=== PATIENT | female | born 1995 | race American Indian/Alaskan Native ===

== ENCOUNTER 2020-09-10 15:21 | Emergency (ER) | payer MEDICAID ==
[2020-09-10] MEDS ORDERED: ACETAMINOPHEN 325 MG TAB PO ONE (15:29)
--- NOTE | 2020-09-10 15:47 | Emergency Department Report ---
Blank Doc - Documentation Documentation: 24-year-old female that was sent by urgent care for positive Covid test. Brianna ent stated has worsening shortness of breath with fever, chills and cough. Tachycardia and fever in triage. Patient received Tylenol. 1- This initial assessment/diagnostic orders/clinical plan/ treatment(s) is/are subject to change based on pt's health status, clinical progression and re- assessment by fellow clinical providers in the ED. Further treatment and workup at subsequent clinical provers discretion. Patient/guardians urged not to elope from ED as their condition may be serious if not clinically assessed and managed. 2-labs 3-EKG 4-chest x-ray
[2020-09-10 16:08] LABS: Basophils # (Auto) 0.1 K/mm3 (0.0-0.1); Basophils % (Auto) 0.6 % (0.0-1.8); Eosinophils # (Auto) 0.3 K/mm3 (0.0-0.4); Eosinophils % (Auto) 2.9 % (0.0-4.3); Hematocrit 36.3 % (30.3-42.9); Hemoglobin 12.4 gm/dl (10.1-14.3); Lymphocytes # (Auto) 1.1 K/mm3 (1.2-5.4); Lymphocytes % (Auto) 11.4 % (13.4-35.0); Mean Corpuscular HGB Conc 34 % (30-34); Mean Corpuscular Volume 84 fl (79-97); Monocytes # (Auto) 0.6 K/mm3 (0.0-0.8); Monocytes % (Auto) 5.9 % (0.0-7.3); Platelet Count 304 K/mm3 (140-440); Red Blood Count 4.34 M/mm3 (3.65-5.03); Red Cell Distribution Width 12.8 % (13.2-15.2)
[2020-09-10 16:27] LABS: Blood Urea Nitrogen 7 mg/dL (7-17); Calcium 8.8 mg/dL (8.4-10.2); Hemolysis Index 4
[2020-09-10 16:28] LABS: BUN/Creatinine Ratio 12
--- NOTE | 2020-09-10 17:04 | XRay Report ---
CHEST 1 VIEW 09/10/2020 3:57 PM INDICATION / CLINICAL INFORMATION: sob/cough. Covid positive COMPARISON: None available. FINDINGS: SUPPORT DEVICES: None. HEART / MEDIASTINUM: No significant abnormality. LUNGS / PLEURA: No significant pulmonary or pleural abnormality. No pneumothorax. ADDITIONAL FINDINGS: No significant additional findings. IMPRESSION: 1. No acute findings. Signer Name: Aj Torres MD Signed: 09/10/2020 5:00 PM Workstation Name: [id number]
--- NOTE | 2020-09-10 17:22 | Emergency Department Report ---
- General Chief Complaint: Dyspnea/Respdistress Stated Complaint: RADHA Time Seen by Provider: 09/10/20 15:44 Source: patient Mode of arrival: Ambulatory Limitations: No Limitations - History of Present Illness Initial Comments: Patient is a 24-year-old female presents emergency room complaints of URI symptoms that began 3 days ago. She states initially it began with sneezing. She states then she developed coughing, chest tightness, shortness of breath. She states her symptoms are worse with coughing. She also has fever, chills, generalized body aches. She denies any vomiting, diarrhea, leg swelling, pleuritic chest pain. She states that she went to urgent care today and was diagnosed with COVID-19 via rapid testing and advised to be seen in the emergency department. No past medical history. No allergies medications. - Related Data Previous Rx's Medication Instructions Recorded Last Taken Type Ferrous Sulfate [Feosol 325 MG tab] 325 mg PO BID #60 tablet 08/01/14 Unknown Rx HYDROcodone/APAP 5-325 [[place] 1 each PO Q6H PRN #30 tablet 08/01/14 Unknown Rx 5-325 mg TAB] Ibuprofen [Motrin 600 MG tab] 600 mg PO Q6HR PRN #30 tablet 08/01/14 Unknown Rx Vit-Fe Fumar-FA [ 1 each PO QDAY #30 tablet 08/01/14 Unknown Rx Vitamin] Acetaminophen [Tylenol] 650 mg PO Q8HR PRN #20 capsule 09/10/20 Unknown Rx Albuterol Sulfate [Proventil Hfa] 1 - 2 inhalation IH Q4HR PRN #1 09/10/20 Unkno wn Rx hfa.aer.ad Azithromycin [Zithromax TAB] 250 mg PO QDAY 5 Days #6 tablet 09/10/20 Unknown Rx Prednisone [predniSONE 10 mg 10 mg PO .TAPER #1 tab.ds.pk 09/10/20 Unknown Rx (6-Day Pack, 21 Tabs)] guaiFENesin ER [Mucinex ER] 600 mg PO Q12H #14 tablet.er 09/10/20 Unknown Rx Allergies Allergy/AdvReac Type Severity Reaction Status Date / Time No Known Allergies Allergy Verified 09/10/20 15:22 ED Review of Systems ROS: Stated complaint: RADHA Other details as noted in HPI Comment: All other systems reviewed and negative ED Past Medical Hx - Past Medical History Hx Hypertension: No Hx Congestive Heart Failure: No Hx Diabetes: No Hx Deep Vein Thrombosis: No Hx Renal Disease: No Hx Sickle Cell Disease: No Hx Seizures: No Hx Asthma: No Hx COPD: No Hx HIV: No - Surgical History Past Surgical History?: No - Social History Smoking Status: Never Smoker Substance Use Type: Alcohol, Marijuana - Medications Home Medications: Home Medications Medication Instructions Recorded Confirmed Last Taken Type Ferrous Sulfate [Feosol 325 MG tab] 325 mg PO BID #60 tablet 08/01/14 Unknown Rx HYDROcodone/APAP 5-325 [[place] 1 each PO Q6H PRN #30 tablet 08/01/14 Unknown Rx 5-325 mg TAB] Ibuprofen [Motrin 600 MG tab] 600 mg PO Q6HR PRN #30 tablet 08/01/14 Unknown Rx Vit-Fe Fumar-FA [ 1 each PO QDAY #30 tablet 08/01/14 Unknown Rx Vitamin] Acetaminophen [Tylenol] 650 mg PO Q8HR PRN #20 capsule 09/10/20 Unknown Rx Albuterol Sulfate [Proventil Hfa] 1 - 2 inhalation IH Q4HR PRN #1 09/10/20 Unknown Rx hfa.aer.ad Azithromycin [Zithromax TAB] 250 mg PO QDAY 5 Days #6 tablet 09/10/20 Unknown Rx Prednisone [predniSONE 10 mg 10 mg PO .TAPER #1 tab.ds.pk 09/10/20 Unknown Rx (6-Day Pack, 21 Tabs)] guaiFENesin ER [Mucinex ER] 600 mg PO Q12H #14 tablet.er 09/10/20 Unknown Rx ED Physical Exam - General Limitations: No Limitations General appearance: alert, in no apparent distress - Head Head exam: Present: atraumatic, normocephalic - Eye Eye exam: Present: normal appearance - ENT ENT exam: Present: mucous membranes moist - Respiratory Respiratory exam: Present: normal lung sounds bilaterally. Absent: respiratory distress, wheezes, rales, rhonchi, stridor, chest wall tenderness, accessory muscle use, decreased breath sounds, prolonged expiratory - Cardiovascular Cardiovascular Exam: Present: regular rate, normal rhythm, normal heart sounds. Absent: systolic murmur, diastolic murmur, rubs, gallop - Neurological Exam Neurological exam: Present: alert, oriented X3 - Psychiatric Psychiatric exam: Present: normal affect, normal mood - Skin Skin exam: Present: warm, dry, intact ED Course Vital Signs 09/10/20 09/10/20 09/10/20 15:27 16:58 17:23 Temperature 100.2 F H 98.8 F Pulse Rate 122 H 105 H 106 H Respiratory 20 18 18 Rate Blood Pressure 152/89 Blood Pressure 126/70 129/92 [Left] O2 Sat by Pulse 96 100 96 Oximetry ED Medical Decision Making - Lab Data Result diagrams: 09/10/20 15:50 09/10/20 15:50 Lab Results 09/10/20 09/10/20 09/10/20 Range/Units 15:50 15:50 15:50 WBC 9.4 (4.5-11.0) K/mm3 RBC 4.34 (3.65-5.03) M/mm3 Hgb 12.4 (10.1-14.3) gm/dl Hct 36.3 (30.3-42.9) % MCV 84 (79-97) fl MCH 29 (28-32) pg MCHC 34 (30-34) % RDW 12.8 L (13.2-15.2) % Plt Count 304 (140-440) K/mm3 Lymph % (Auto) 11.4 L (13.4-35.0) % [place] % (Auto) 5.9 (0.0-7.3) % Eos % (Auto) 2.9 (0.0-4.3) % Baso % (Auto) 0.6 (0.0-1.8) % Lymph # (Auto) 1.1 L (1.2-5.4) K/mm3 [place] # (Auto) 0.6 (0.0-0.8) K/mm3 Eos # (Auto) 0.3 (0.0-0.4) K/mm3 Baso # (Auto) 0.1 (0.0-0.1) K/mm3 Seg Neutrophils % 79.2 H (40.0-70.0) % Seg Neutrophils # 7.4 (1.8-7.7) K/mm3 Sodium 136 L (137-145) mmol/L Potassium 3.5 L (3.6-5.0) mmol/L Chloride 103.0 (98-107) mmol/L Carbon Dioxide 23 (22-30) mmol/L Anion Gap 14 mmol/L BUN 7 (7-17) mg/dL Creatinine 0.6 (0.6-1.2) mg/dL Estimated GFR > 60 ml/min BUN/Creatinine Ratio 12 % Glucose 103 H (65-100) mg/dL Lactic Acid 1.10 (0.7-2.0) mmol/L Calcium 8.8 (8.4-10.2) mg/dL HCG, Qual (Negative) 09/10/20 Range/Units 15:50 WBC (4.5-11.0) K/mm3 RBC (3.65-5.03) M/mm3 Hgb (10.1-14.3) gm/dl Hct (30.3-42.9) % MCV (79-97) fl MCH (28-32) pg MCHC (30-34) % RDW (13.2-15.2) % Plt Count (140-440) K/mm3 Lymph % (Auto) (13.4-35.0) % [place] % (Auto) (0.0-7.3) % Eos % (Auto) (0.0-4.3) % Baso % (Auto) (0.0-1.8) % Lymph # (Auto) (1.2-5.4) K/mm3 [place] # (Auto) (0.0-0.8) K/mm3 Eos # (Auto) (0.0-0.4) K/mm3 Baso # (Auto) (0.0-0.1) K/mm3 Seg Neutrophils % (40.0-70.0) % Seg Neutrophils # (1.8-7.7) K/mm3 Sodium (137-145) mmol/L Potassium (3.6-5.0) mmol/L Chloride (98-107) mmol/L Carbon Dioxide (22-30) mmol/L Anion Gap mmol/L BUN (7-17) mg/dL Creatinine (0.6-1.2) mg/dL Estimated GFR ml/min BUN/Creatinine Ratio % Glucose (65-100) mg/dL Lactic Acid (0.7-2.0) mmol/L Calcium (8.4-10.2) mg/dL HCG, Qual Negative (Negative) Vital Signs 09/10/20 09/10/20 09/10/20 15:27 16:58 17:23 Temperature 100.2 F H 98.8 F Pulse Rate 122 H 105 H 106 H Respiratory 20 18 18 Rate Blood Pressure 152/89 Blood Pressure 126/70 129/92 [Left] O2 Sat by Pulse 96 100 96 Oximetry - Radiology Data Radiology results: report reviewed Ordering Physician: OLIVA BACA NP Date of Service: 09/10/20 Procedure(s): XR chest 1V ap Accession Number(s): [id number] cc: OLIVA BACA NP Fluoro Time In Minutes: CHEST 1 VIEW 09/10/2020 3:57 PM INDICATION / CLINICAL INFORMATION: sob/cough. Covid positive COMPARISON: None available. FINDINGS: SUPPORT DEVICES: None. HEART / MEDIASTINUM: No significant abnormality. LUNGS / PLEURA: No significant pulmonary or pleural abnormality. No pneumothorax. ADDITIONAL FINDINGS: No significant additional findings. IMPRESSION: 1. No acute findings. Signer Name: Aj Torres MD Signed: 09/10/2020 5:00 PM Workstation Name: [id number] Transcribed By: SS Dictated By: Aj Torres MD Electronically Authenticated By: Aj Torres MD Signed Date/Time: 09/10/201699 DD/ 99 TD/TT: - Medical Decision Making Patient is a 24-year-old female presents emergency room complaints of URI symptoms that began 3 days ago. She states initially it began with sneezing. She states then she developed coughing, chest tightness, shortness of breath. She states her symptoms are worse with coughing. She also has fever, chills, generalized body aches. She denies any vomiting, diarrhea, leg swelling, pleuritic chest pain. She states that she went to urgent care today and was di agnosed with COVID-19 via rapid testing and advised to be seen in the emergency department. No past medical history. No allergies medications. Vitals with elevated heart rate and temperature which improved upon repeat. Breath sounds are clear bilaterally, no wheezing, no rales, no rhonchi. Labs are stable. Chest x-ray with no acute process. Patient was ambulated in the emergency department and maintained oxygen saturation of 94% or greater on room air. Patient does not meet hospital criteria for admission. Patient given prescription for azithromycin, prednisone, albuterol inhaler, Mucinex, Tylenol. Advised patient Please take medication as prescribed. Please increase your fluid intake over the next several days. Follow-up with a primary care doctor for reexamination. Return to emergency room immediately for any new or worsening symptoms including but not limited to difficulty breathing, shortness of breath, severe chest pain, unable to tolerate by mouth intake, etc. Please self quarantine for 10 days from the onset of your symptoms. Please do not go out in public. If you are around others at home please wear a mask. If you need to cough or sneeze please do so in a napkin and immediately throw it away and immediately wash your hands. Wash your hands frequently. Wipe everything down. Critical care attestation.: If time is entered above; I have spent that time in minutes in the direct care of this critically ill patient, excluding procedure time. ED Disposition Clinical Impression: COVID-19 URI (upper respiratory infection) Qualifiers: URI type: unspecified URI Qualified Code(s): J06.9 - Acute upper respiratory infection, unspecified Disposition: DC-01 TO HOME OR SELFCARE Is pt being admited?: No Does the pt Need Aspirin: No Condition: Stable Instructions: COVID-19 Frequently Asked Questions, COVID-19, COVID-19: How to Protect Yourself and Others - CDC Additional Instructions: Please take medication as prescribed. Please increase your fluid intake over the next several days. Follow-up with a primary care doctor for reexamination. Return to emergency room immediately for any new or worsening symptoms including but not limited to difficulty breathing, shortness of breath, severe chest pain, unable to tolerate by mouth intake, etc. Please self quarantine for 10 days from the onset of your symptoms. Please do not go out in public. If you are around others at home please wear a mask. If you need to cough or sneeze please do so in a napkin and immediately throw it away and immediately wash your hands. Wash your hands frequently. Wipe everything down. Prescriptions: guaiFENesin ER [Mucinex ER] 600 mg PO Q12H #14 tablet.er Prednisone [predniSONE 10 mg (6-Day Pack, 21 Tabs)] 10 mg PO .TAPER #1 tab.ds.pk Albuterol Sulfate [Proventil Hfa] 1 - 2 inhalation IH Q4HR PRN #1 hfa.aer.ad PRN Reason: shortness of breath/wheezing Acetaminophen [Tylenol] 650 mg PO Q8HR PRN #20 capsule PRN Reason: pain Azithromycin [Zithromax TAB] 250 mg PO QDAY 5 Days #6 tablet Referrals: SUZY GRULLON MD [Staff Physician] - 2-3 Days [facility] [Provider Group] - 2-3 Days Forms: Work/School Release Form(ED) Time of Disposition: 17:18 Print Language: YAKUT
[2020-09-10 17:24] VITALS: BP 129/92
== END 2020-09-10 17:40 | disposition home or self-care (01) ==
LOC: ED 15:21
DX: U07.1 COVID-19 (principal); J06.9 Acute upper respiratory infection, unspecified; F12.10 Cannabis abuse, uncomplicated; Z79.1 Long term (current) use of non-steroidal anti-inflammatories (NSAID); Z79.2 Long term (current) use of antibiotics; Z79.899 Other long term (current) drug therapy
CPT/HCPCS: 36415; 71045; 80048; 82140; 84703; 85025

== ENCOUNTER 2021-03-09 08:24 | Observation (INO) | payer MEDICAID ==
[2021-03-09] MEDS ORDERED: MIDAZOLAM 2 MG/2 ML INJ IV NR (08:26)
--- NOTE | 2021-03-09 08:28 | Event Note ---
Date: 03/09/21 The patient was evaluated in the emergency department for symptoms described in the history of present illness. He/she was evaluated in the context of the global COVID-19 pandemic, which necessitated consideration that the patient might be at risk for infection with the virus that causes COVID-19. Institutional protocols and algorithms that pertain to the evaluation of patients at risk for COVID-19 are in a state of rapid change based on information released by regulatory bodies including the CDC and federal and state organizations. These policies and algorithms were followed during the patient's care in the emergency department. Please note that these policies, procedures and recommendations changed on a rapid basis. EMS documentation not available at time of chart dictation Verbal report received from emergency medical services. Medical screening examination: 25-year-old female, brought to the hospital by emergency medical services with a complaint of altered mental status. Patient is awake, and alert to name, but does not know the year, month, or president. She has intermittent hiccups. She is moving 4 extremities. She consumes recreational marijuana. She is not homicidal or suicidal. She has not fallen or hit her head. EMS reports that she did collapse into soft questions upon their arrival. They report normal fingerstick and normal vital signs. The patient is conversing with me, and appears to be minimally confused. She is moving 4 extremities. She has no meningeal signs. She admits to recreational marijuana use. I suspect a toxic encephalopathy. Obtain appropriate laboratory studies, EKG, noncontrast CT scan of the brain, trial dose 1 mg of midazolam.
[2021-03-09] MEDS ORDERED: LACTATED RINGERS 1,000 ML IV ONE (08:52)
--- NOTE | 2021-03-09 08:54 | Cat Scan Report ---
CT HEAD WITHOUT CONTRAST INDICATION / CLINICAL INFORMATION: CODE STROKE CALL ER MAIN AT 8199 Altered Mental Status. TECHNIQUE: Axial imaging performed from the skull apex through the skull base without the use of cont rast. Sagittal and coronal reformatted images. All CT scans at this location are performed using CT dose reduction for ALARA by means of automated exposure control. COMPARISON: None available. FINDINGS: Comment: There is moderate patient motion artifact which limits this exam. CEREBRAL PARENCHYMA: No significant abnormality. No acute territorial infarct. HEMORRHAGE: None. EXTRA-AXIAL SPACES: Normal in size and morphology for the patient's age. VENTRICULAR SYSTEM: Normal in size and morphology for the patient's age. MIDLINE SHIFT OR HERNIATION: None. CEREBELLUM / BRAINSTEM: No significant abnormality. CALVARIUM: No significant abnormality. ORBITS: Normal as visualized. PARANASAL SINUSES / MASTOID AIR CELLS: Moderate to severe mucosal thickening is noted throughout the ethmoid and maxillary sinuses. The remaining sinuses and mastoid air cells are clear. SOFT TISSUES of HEAD: No significant abnormality. ADDITIONAL FINDINGS: None. IMPRESSION: No acute intracranial abnormality. CODE STROKE: Time of Communication (SATELLITE TV TECHNICIAN INSTALLER/CDT): 0750 hours Licensed Practitioner Receiving Report: donna Walton nurse Signer Name: Pravin Myers Jr, MD Signed: 03/09/2021 8:50 AM Workstation Name: [id number]
--- NOTE | 2021-03-09 08:56 | Emergency Department Report ---
Blank Doc - Documentation Documentation: [facility] Consult Note # Demographics Consult Type: General Neurology Patient Location: Emergency Room First Name: Destinee Last Name: Robert Date of : 1995 Age: 25 Gender: Female Facility: [facility] Time of Initial Page (Eastern Time): 03/09/2021, 08:47 Time of Return Call (Eastern Time): 03/09/2021, 08:47 # HPI History: 25yo F presents with some confusion, some jerking movements and some weakness of the right leg. # Exam Mental Status: awake follows commands child-like speaking and behaviors Language: normal speech Cranial Nerves: normal Motor: symmetric lifting of all extremities Cerebellar: normal cerebellar exam # Assessment Impression: whole body jerking, child like behavior. highly unliely to be seizure as she is talking through the jerking movements # Plan Thrombolytic/Intervention: NOT IV Thrombolysis or IA Intervention candidate Thrombolytic/Intraarterial Exclusion: IV thrombolytic and IA intervention considered but not recommended as this patient's symptoms are not clinically consistent with an assumed diagnosis of stroke Imaging: (urgency: STAT): CT Angiogram Head and CT Angiogram Neck AND call back with results if abnormal Imaging: (urgency: routine): MRI Brain with AND without contrast Diagnostic Test: EEG Therapy/Evaluation: PT/OT evaluation Other: I have discussed my recommendations with the referring provider # Logistics Telemedicine: Interactive 2 way audio and visual telecommunication technology was utilized during this visit
[2021-03-09 08:59] LABS: Basophils # (Auto) 0.1 K/mm3 (0.0-0.1); Basophils % (Auto) 0.9 % (0.0-1.8); Eosinophils # (Auto) 0.1 K/mm3 (0.0-0.4); Hematocrit 39.3 % (30.3-42.9); Hemoglobin 13.2 gm/dl (10.1-14.3); Lymphocytes # (Auto) 2.7 K/mm3 (1.2-5.4); Lymphocytes % (Auto) 43.7 % (13.4-35.0); Mean Corpuscular HGB Conc 34 % (30-34); Mean Corpuscular Volume 84 fl (79-97); Monocytes # (Auto) 0.4 K/mm3 (0.0-0.8); Platelet Count 394 K/mm3 (140-440); Red Cell Distribution Width 12.6 % (13.2-15.2)
[2021-03-09 09:15] LABS: INR 0.89 (0.87-1.13)
[2021-03-09 09:38] LABS: Alanine Aminotransferase 20 units/L (7-56); Albumin 4.4 g/dL (3.9-5); Blood Urea Nitrogen 6 mg/dL (7-17); Hemolysis Index 2
--- NOTE | 2021-03-09 09:39 | Emergency Department Report ---
ED General Adult HPI - General Chief complaint: Altered Mental Status Stated complaint: ALTERED MENTAL STATUS PUI?: No Time Seen by Provider: 03/09/21 08:52 Source: patient, EMS (Verbal report received from emergency medical services. EMS documentation not available at time of chart dictation ), RN notes reviewed Mode of arrival: Stretcher Limitations: Altered Mental Status - History of Present Illness Initial comments: The patient was evaluated in the emergency department for symptoms described in the history of present illness. He/she was evaluated in the context of the global COVID-19 pandemic, which necessitated consideration that the patient might be at risk for infection with the virus that causes COVID-19. Inst itutional protocols and algorithms that pertain to the evaluation of patients at risk for COVID-19 are in a state of rapid change based on information released by regulatory bodies including the CDC and federal and state organizations. These policies and algorithms were followed during the patient's care in the emergency department. Please note that these policies, procedures and recommendations changed on a rapid basis. The patient is a 25-year-old female. She is not known to myself previously. She is brought to the hospital by emergency medical services with a complaint of altered mental status. EMS believes that patient's last known well time is approximately 2 hours prior to their initial arrival to this emergency room. However, they are not completely certain as to the patient's last known well time. The patient reports that she got back from [place] last night. She endorses recreational marijuana consumption. The patient complained of hand pain. EMS states the patient has been having involuntary jerking movements in her shoulders. EMS also stated normal vital signs and normal Accu-Chek in the field. The patient herself in the emergency room is awake to name and follows commands. She thinks that she is at the hospital. She does not know the year, or the manufacturing teacher. The patient is confused, and not able to describe the qualitative nature of her symptoms, exacerbating factors, relieving factors or aggravating factors. The patient is not accompanied by friends or family at this time for collateral information. -: unknown - Related Data Previous Rx's Medication Instructions Recorded Last Taken Type Ferrous Sulfate [Feosol 325 MG tab] 325 mg PO BID #60 tablet 08/01/14 Unknown Rx HYDROcodone/APAP 5-325 [Ke[place] 1 each PO Q6H PRN #30 tablet 08/01/14 Unknown Rx 5-325 mg TAB] Ibuprofen [Motrin 600 MG tab] 600 mg PO Q6HR PRN #30 tablet 08/01/14 Unknown Rx Vit-Fe Fumar-FA [ 1 each PO QDAY #30 tablet 08/01/14 Unknown Rx Vitamin] Acetaminophen [Tylenol] 650 mg PO Q8HR PRN #20 capsule 09/10/20 Unknown Rx Albuterol Sulfate [Proventil Hfa] 1 - 2 inhalation IH Q4HR PRN #1 09/10/20 Unknown Rx hfa.aer.ad Azithromycin [Zithromax TAB] 250 mg PO QDAY 5 Days #6 tablet 09/10/20 Unknown Rx Prednisone [predniSONE 10 mg 10 mg PO .TAPER #1 tab.ds.pk 09/10/20 Unknown Rx (6-Day Pack, 21 Tabs)] guaiFENesin ER [Mucinex ER] 600 mg PO Q12H #14 tablet.er 09/10/20 Unknown Rx Allergies Allergy/AdvReac Type Severity Reaction Status Date / Time No Known Allergies Allergy Verified 09/10/20 15:22 ED Review of Systems ROS: Stated complaint: ALTERED MENTAL STATUS Other details as noted in HPI Comment: Unobtainable due to pts medical conditions Cardiovascular: denies: chest pain Gastrointestinal: denies: abdominal pain Neurological: confusion Psychiatric: denies: homicidal thoughts, suicidal thoughts ED Past Medical Hx - Past Medical History Hx Hypertension: No Hx Congestive Heart Failure: No Hx Diabetes: No Hx Deep Vein Thrombosis: No Hx Renal Disease: No Hx Sickle Cell Disease: No Hx Seizures: No Hx Asthma: No Hx COPD: No Hx HIV: No - Social History Smoking Status: Never Smoker Substance Use Type: Alcohol, Marijuana - Medications Home Medications: Home Medications Medication Instructions Recorded Confirmed Last Taken Type Ferrous Sulfate [Feosol 325 MG tab] 325 mg PO BID #60 tablet 08/01/14 Unknown Rx HYDROcodone/APAP 5-325 [Keene 1 each PO Q6H PRN #30 tablet 08/01/14 Unknown Rx 5-325 mg TAB] Ibuprofen [Motrin 600 MG tab] 600 mg PO Q6HR PRN #30 tablet 08/01/14 Unknown Rx Vit-Fe Fumar-FA [ 1 each PO QDAY #30 tablet 08/01/14 Unknown Rx Vitamin] Acetaminophen [Tylenol] 650 mg PO Q8HR PRN #20 capsule 09/10/20 Unknown Rx Albuterol Sulfate [Proventil Hfa] 1 - 2 inhalation IH Q4HR PRN #1 09/10/20 Unknown Rx hfa.aer.ad Azithromycin [Zithromax TAB] 250 mg PO QDAY 5 Days #6 tablet 09/10/20 Unknown Rx Prednisone [predniSONE 10 mg 10 mg PO .TAPER #1 tab.ds.pk 09/10/20 Unknown Rx (6-Day Pack, 21 Tabs)] guaiFENesin ER [Mucinex ER] 600 mg PO Q12H #14 tablet.er 09/10/20 Unknown Rx ED Physical Exam - General Limitations: Altered Mental Status General appearance: anxious - Head Head exam: Present: atraumatic, normocephalic - Eye Eye exam: Present: normal appearance, PERRL, EOMI - ENT ENT exam: Present: normal exam, normal orophraynx, mucous membranes moist, normal external ear exam - Neck Neck exam: Present: normal inspection, full ROM. Absent: tenderness, meningismus - Respiratory Respiratory exam: Present: normal lung sounds bilaterally. Absent: respiratory distress, wheezes, rales, rhonchi, stridor - Cardiovascular Cardiovascular Exam: Present: regular rate, normal rhythm, normal heart sounds. Absent: bradycardia, tachycardia, irregular rhythm, systolic murmur, diastolic murmur, rubs, gallop - GI/Abdominal GI/Abdominal exam: Present: soft. Absent: distended, tenderness, guarding, rebound, rigid, pulsatile mass - Extremities Exam Extremities exam: Present: normal inspection, other (2+ pulses noted in the bi lateral upper and lower extremities. There is no palpable cord. negative Homans sign. Muscular compartments are soft. The pelvis is stable.). Absent: calf tenderness - Back Exam Back exam: Present: normal inspection. Absent: tenderness, CVA tenderness (R), CVA tenderness (L), paraspinal tenderness, vertebral tenderness - Neurological Exam Neurological exam: Present: altered (Downgoing plantar reflexes bilaterally. 2+ biceps, triceps, quadriceps reflexes bilaterally), other (EOMI. No facial droop. Tongue midline. 5 out of 5 strength bilateral upper extremities and left lower extremity. 5 out of 5 strength right for dorsi and plantar flexion. Sensation intact to light touch and pinch right arm, left arm, and left leg. ) - Psychiatric Psychiatric exam: Present: anxious. Absent: homicidal ideation, suicidal ideation - Skin Skin exam: Present: warm, dry, intact, normal color. Absent: rash ED Course - Reevaluation(s) Reevaluation #1: 03/09/21 09:40 Differential diagnosis, including but not limited to: Toxic encephalopathy, pneumonia, urinary tract infection, thyroid derangement, subacute seizure, postictal state, conversion disorder, stroke Assessment and plan: 25-year-old female, with confusion, jerking movements, inconsistent physical exam, noted to be moving right foot and right knee intermittently, withdraws to painful stimuli, with childlike pronunciation, but awake during my history and physical examination and the neurologist history and physical examination. This is unlikely to be an ischemic event given the aforementioned. Her last known well time is not explicitly known. AED therapy not recommended at this time. We will continue laboratory evaluation, obtain CT angiogram head and neck. Noncontrast CT scan of the brain negative for acute findings. Patient seen in conjunction with stroke neurologist, Dr. Blanco. Please reference their note. This patient is cooperative, and she is not homicidal or suicidal. I suspect that this is a conversion disorder, or transient toxic encephalopathy. 03/09/21 09:51 Laboratory studies unremarkable except potassium of 3.4. CT head, CT angiogram head and neck negative for acute findings. Patient will be admitted to the medical service for further care and management. 03/09/21 10:03 Dr Yuko Marie to admit to [facility] ED Medical Decision Making - Lab Data Result diagrams: 03/09/21 08:42 03/09/21 08:42 Lab Results 03/09/21 03/09/21 03/09/21 Range/Units 08:42 08:42 08:42 WBC 6.2 (4.5-11.0) K/mm3 RBC 4.70 (3.65-5.03) M/mm3 Hgb 13.2 (10.1-14.3) gm/dl Hct 39.3 (30.3-42.9) % MCV 84 (79-97) fl MCH 28 (28-32) pg MCHC 34 (30-34) % RDW 12.6 L (13.2-15.2) % Plt Count 394 (140-440) K/mm3 Lymph % (Auto) 43.7 H (13.4-35.0) % [place] % (Auto) 7.0 (0.0-7.3) % Eos % (Auto) 1.0 (0.0-4.3) % Baso % (Auto) 0.9 (0.0-1.8) % Lymph # (Auto) 2.7 (1.2-5.4) K/mm3 [place] # (Auto) 0.4 (0.0-0.8) K/mm3 Eos # (Auto) 0.1 (0.0-0.4) K/mm3 Baso # (Auto) 0.1 (0.0-0.1) K/mm3 Seg Neutrophils % 47.4 (40.0-70.0) % Seg Neutrophils # 2.9 (1.8-7.7) K/mm3 PT 12.5 (12.2-14.9) Sec. INR 0.89 (0.87-1.13) POC Glucose (70-105) mg/dL Acetaminophen 5.0 L (10.0-30.0) ug/mL Plasma/Serum Alcohol (0-0.07) % 03/09/21 03/09/21 Range/Units 08:42 08:52 WBC (4.5-11.0) K/mm3 RBC (3.65-5.03) M/mm3 Hgb (10.1-14.3) gm/dl Hct (30.3-42.9) % MCV (79-97) fl MCH (28-32) pg MCHC (30-34) % RDW (13.2-15.2) % Plt Count (140-440) K/mm3 Lymph % (Auto) (13.4-35.0) % Sol[place] % (Auto) (0.0-7.3) % Eos % (Auto) (0.0-4.3) % Baso % (Auto) (0.0-1.8) % Lymph # (Auto) (1.2-5.4) K/mm3 [place] # (Auto) (0.0-0.8) K/mm3 Eos # (Auto) (0.0-0.4) K/mm3 Baso # (Auto) (0.0-0.1) K/mm3 Seg Neutrophils % (40.0-70.0) % Seg Neutrophils # (1.8-7.7) K/mm3 PT (12.2-14.9) Sec. INR (0.87-1.13) POC Glucose 96 (70-105) mg/dL Acetaminophen (10.0-30.0) ug/mL Plasma/Serum Alcohol < 0.01 (0-0.07) % - EKG Data -: EKG Interpreted by Wi EKG shows normal: sinus rhythm Rate: normal - EKG Data 03/09/21 09:38 EKG is interpreted at 08: 5 6 AM Sinus rhythm, 87 bpm. Normal axis, normal intervals, incomplete right bundle branch block, high left ventricular voltage. This is an abnormal EKG. This is not a STEMI. There is no prior for comparison. - Radiology Data Radiology results: pending, report reviewed, image reviewed CT HEAD WITHOUT CONTRAST INDICATION / CLINICAL INFORMATION: CODE STROKE CALL ER MAIN AT 8199 Altered Mental Status. TECHNIQUE: Axial imaging performed from the skull apex through the skull base without the use of contrast. Sagittal and coronal reformatted images. All CT scans at this location are performed using CT dose reduction for ALARA by means of automated exposure control. COMPARISON: None available. FINDINGS: Comment: There is moderate patient motion artifact which limits this exam. CEREBRAL PARENCHYMA: No significant abnormality. No acute territorial infarct. HEMORRHAGE: None. EXTRA-AXIAL SPACES: Normal in size and morphology for the patient's age. VENTRICULAR SYSTEM: Normal in size and morphology for the patient's age. MIDLINE SHIFT OR HERNIATION: None. CEREBELLUM / BRAINSTEM: No significant abnormality. CALVARIUM: No significant abnormality. ORBITS: Normal as visualized. PARANASAL SINUSES / MASTOID AIR CELLS: Moderate to severe mucosal thickening is noted throughout the ethmoid and maxillary sinuses. The remaining sinuses and mastoid air cells are clear. SOFT TISSUES of HEAD: No significant abnormality. ADDITIONAL FINDINGS: None. IMPRESSION: No acute intracranial abnormality. CODE STROKE: Time of Communication (NEWS AGENT/CDT): 0750 hours Licensed Practitioner Receiving Report: donna Walton nurse Signer Name: Pravin Myers Jr, MD Signed: 03/09/2021 7:50 AM Workstation Name: [id number] CTA HEAD AND NECK WITH CONTRAST HISTORY: Mental status changes and weakness COMPARISON: None. TECHNIQUE: All CT scans at this location are performed using CT dose reduction for ALARA by means of automated exposure control.. 3-D/MIP reformats postprocessed. Percentage stenosis is determined by direct quantitative measurements of diseased internal carotid artery diameter compared with normal distal internal carotid artery reference segments or by criteria similar to NASCET where applicable. CONTRAST: 100 ml of Omnipaque 350 FINDINGS : CT HEAD: BRAIN / INTRACRANIAL CONTENTS: No acute hemorrhage, mass effect, midline shift, or hydrocephalus. No appreciable acute large territorial or lacunar infarct. ORBITS: No significant abnormality of visualized orbits. SINUSES / MASTOIDS: No significant abnormality of visualized sinuses and mastoid air cells. CTA HEAD: Intracranial vertebral arteries: No significant abnormality. Basilar artery: No significant abnormality. Posterior cerebral arteries: No significant abnormality. Intracranial internal carotid arteries: No significant abnormality. Anterior cerebral arteries: No significant abnormality. Middle cerebral arteries: No significant abnormality. Dural venous sinuses:Not optimally opacified. No significant abnormality. CTA NECK: Aortic arch: No significant abnormality. Cervical vertebral arteries: No significant abnormality. Common carotid arteries: No significant abnormality. Cervical internal carotid arteries: No significant abnormality. Additional findings: None. IMPRESSION: 1. No significant stenosis, large vessel occlusion, or other acute abnormality in the head and neck arteries. Signer Name: Shreyas Houston MD Signed: 03/09/2021 8:40 AM Workstation Name: [id number] Critical care attestation.: If time is entered above; I have spent that time in minutes in the direct care of this critically ill patient, excluding procedure time. ED Disposition Clinical Impression: Acute encephalopathy, Jerking movements of extremities Disposition: ADMITTED INPATIENT Is pt being admited?: Yes Does the pt Need Aspirin: No Condition: Good Referrals: PRIMARY CARE, [Primary Care Provider] - 3-5 Days - Assessment Assessment Interval: Baseline - Level of Consciousness 1a. Level of Consciousness: alert/keenly responsive - LOC Questions 1b. LOC Questions: answers 1 question correctly - LOC Command 1c. LOC Commands: performs tasks correctly - Best Gaze 2. Best Gaze: normal - Visual 3. Visual: no visual loss - Facial Palsy 4. Facial Palsy: normal symmetrical movement - Motor Arm 5a. Motor Arm Left: no drift 5b. Motor Arm Right: no drift - Motor Leg 6a. Motor Leg Left: no drift 6b. Motor Leg Right: some gravity effort - Limb Ataxia 7. Limb Ataxia: absent - Sensory 8. Sensory: mild/moderate sensory loss - Best Language 9. Best Language: no aphasia - Dysarthria 10. Dysarthria: normal - Extinction and Inattention 11. Extinction/Inattention: no abnormality - Scoring Total Score: 4 Stroke Severity: Minor Stroke
[2021-03-09 09:43] LABS: BUN/Creatinine Ratio 9
--- NOTE | 2021-03-09 09:45 | Cat Scan Report ---
CTA HEAD AND NECK WITH CONTRAST HISTORY: Mental status changes and weakness COMPARISON: None. TECHNIQUE: All CT scans at this location are performed using CT dose reduction for ALARA by means of automated exposure control.. 3-D/MIP reformats postprocessed. Percentage stenosis is determined by d irect quantitative measurements of diseased internal carotid artery diameter compared with normal dis randolph internal carotid artery reference segments or by criteria similar to NASCET where applicable. CONTRAST: 100 ml of Omnipaque 350 FINDINGS: CT HEAD: BRAIN / INTRACRANIAL CONTENTS: No acute hemorrhage, mass effect, midline shift, or hydrocephalus. No appreciable acute large territorial or lacunar infarct. ORBITS: No significant abnormality of visualized orbits. SINUSES / MASTOIDS: No significant abnormality of visualized sinuses and mastoid air cells. CTA HEAD: Intracranial vertebral arteries: No significant abnormality. Basilar artery: No significant abnormality. Posterior cerebral arteries: No significant abnormality. Intracranial internal carotid arteries: No significant abnormality. Anterior cerebral arteries: No significant abnormality. Middle cerebral arteries: No significant abnormality. Dural venous sinuses:Not optimally opacified. No significant abnormality. CTA NECK: Aortic arch: No significant abnormality. Cervical vertebral arteries: No significant abnormality. Common carotid arteries: No significant abnormality. Cervical internal carotid arteries: No significant abnormality. Additional findings: None. IMPRESSION: 1. No significant stenosis, large vessel occlusion, or other acute abnormality in the head and neck [facility]. Signer Name: Shreyas Houston MD Signed: 03/09/2021 9:40 AM Workstation Name: [id number]
[2021-03-09] MEDS ORDERED: POTASSIUM CHLORIDE ER 20 MEQ TAB PO ONE (09:50)
[2021-03-09] MEDS ORDERED: ASPIRIN 81 MG TAB CHEW PO ONE (10:04)
--- NOTE | 2021-03-09 10:16 | XRay Report ---
CHEST 1 VIEW INDICATION: ams. COMPARISON: 09/10/2020 FINDINGS: Support devices: None. Heart: Within normal limits. Lungs/Pleura: No acute air space or interstitial disease. Additional findings: None. IMPRESSION: No acute findings. Signer Name: Pravin Myers Jr, MD Signed: 03/09/2021 10:11 AM Workstation Name: [id number]
--- NOTE | 2021-03-09 13:11 | History and Physical Report ---
History of Present Illness Date of examination: 03/09/21 Date of admission: 03/09/21 10:04 History of present illness: The patient is a 25-year-old female. She is not known to myself previously. She is brought to the hospital by emergency medical services with a complaint of altered mental status. EMS believes that patient's last known well time is approximately 2 hours prior to their initial arrival to this emergency room. However, they are not completely certain as to the patient's last known well time. The patient reports that she got back from [place] last night. She endorses recreational marijuana consumption. The patient complained of hand pain. EMS states the patient has been having involuntary jerking movements in her shoulders. EMS also stated normal vital signs and normal Accu-Chek in the field. The patient herself in the emergency room is awake to name and follows commands. She thinks that she is at the hospital. She does not know the year, or the funeral location manager. The patient is confused, and not able to describe the qualitative nature of her symptoms, exacerbating factors, relieving factors or aggravating factors. Medications and Allergies Allergies Allergy/AdvReac Type Severity Reaction Status Date / Time No Known Allergies Allergy Verified 09/10/20 15:22 Home Medications Medication Instructions Recorded Confirmed Last Taken Type Ferrous Sulfate [Feosol 325 MG tab] 325 mg PO BID #60 tablet 08/01/14 Unknown Rx HYDROcodone/APAP 5-325 [H[place] 1 each PO Q6H PRN #30 tablet 08/01/14 Unknown Rx 5-325 mg TAB] Ibuprofen [Motrin 600 MG tab] 600 mg PO Q6HR PRN #30 tablet 08/01/14 Unknown Rx Vit-Fe Fumar-FA [ 1 each PO QDAY #30 tablet 08/01/14 Unknown Rx Vitamin] Acetaminophen [Tylenol] 650 mg PO Q8HR PRN #20 capsule 09/10/20 Unknown Rx Albuterol Sulfate [Proventil Hfa] 1 - 2 inhalation IH Q4HR PRN #1 09/10/20 Unknown Rx hfa.aer.ad Azithromycin [Zithromax TAB] 250 mg PO QDAY 5 Days #6 tablet 09/10/20 Unknown Rx Prednisone [predniSONE 10 mg 10 mg PO .TAPER #1 tab.ds.pk 09/10/20 Unknown Rx (6-Day Pack, 21 Tabs)] guaiFENesin ER [Mucinex ER] 600 mg PO Q12H #14 tablet.er 09/10/20 Unknown Rx Active Meds: Active Medications Dextrose/Sodium Chloride (D5ns) 1,000 mls @ 75 mls/hr IV DIRECT JOSE Exam - Constitutional Vitals: Temp Pulse Resp BP Pulse Ox 99.1 F 113 H 24 123/80 100 03/09/21 10:08 03/09/21 10:31 03/09/21 10:31 03/09/21 12:15 03/09/21 12:15 HEART Score - HEART Score Troponin: Troponin T < 0.010 ng/mL (0.00-0.029) 03/09/21 08:42 Results - Labs CBC & Chem 7: 03/09/21 08:42 03/09/21 08:42 Labs: Abnormal lab results 03/09/21 03/09/21 03/09/21 Range/Units 08:42 08:42 08:42 RDW 12.6 L (13.2-15.2) % Lymph % (Auto) 43.7 H (13.4-35.0) % Sodium 136 L (137-145) mmol/L Potassium 3.4 L (3.6-5.0) mmol/L BUN 6 L (7-17) mg/dL Glucose 116 H (65-100) mg/dL Ammonia 20.0 L (25-60) umol/L Total Protein 8.5 H (6.3-8.2) g/dL Salicylates (2.8-20.0) mg/dL Acetaminophen (10.0-30.0) ug/mL 03/09/21 03/09/21 Range/Units 08:42 08:42 RDW (13.2-15.2) % Lymph % (Auto) (13.4-35.0) % Sodium (137-145) mmol/L Potassium (3.6-5.0) mmol/L BUN (7-17) mg/dL Glucose (65-100) mg/dL Ammonia (25-60) umol/L Total Protein (6.3-8.2) g/dL Salicylates < 0.3 L (2.8-20.0) mg/dL Acetaminophen 5.0 L (10.0-30.0) ug/mL Assessment and Plan --Acute encephalopathy, toxic versus metabolic --Acute seizure --Hypokalemia with hyponatremia --Sinus tachycardia Plan: Admit patient with observation status to telemetry Ordered EEG, CT head CTA head neck is negative Continue to monitor clinically, with further neurology recommendation IV fluid, DVT prophylaxis, regular diet if passes bedside swallow study Repeat potassium and follow serum chemistry
[2021-03-09] MEDS ORDERED: D5W/0.9% NACL 1,000 ML IV SCH (14:00)
[2021-03-09] MEDS ORDERED: ACETAMINOPHEN 325 MG TAB PO PRN (18:00)
[2021-03-09] MEDS ORDERED: ONDANSETRON 4 MG/2 ML INJ IV ONE (18:00)
[2021-03-09] MEDS ORDERED: oxyCODONE /ACETAMINOPHEN 5-325MG TAB PO PRN (18:00)
[2021-03-09] MEDS ORDERED: hydrALAZINE 20 MG/1 ML INJ IV PRN (18:00)
[2021-03-09] MEDS ORDERED: LORazepam 2 MG/ML VIAL IV PRN (18:00)
--- NOTE | 2021-03-09 19:08 | Consultation ---
History of Present Illness Consult date: 03/09/21 Reason for Consult: Seizure History of present illness: The patient is a 25-year-old female. She is brought to the hospital by emergency medical services with a complaint of altered mental status. EMS believes that patient's last known well time is approximately 2 hours prior to their initial arrival to this emergency room. However, they are not completely certain as to the patient's last known well time. The patient reports that she got back from [place] last night. She endorses recreational marijuana consumption. The patient complained of hand pain. EMS states the patient has been having involuntary jerking movements in her shoulders. EMS also stated normal vital signs and normal Accu-Chek in the field. Patient reports seizure, there is cheek bite and there is numbness over the right side . Medications and Allergies Allergies Allergy/AdvReac Type Severity Reaction Status Date / Time No Known Allergies Allergy Verified 09/10/20 15:22 Home Medications Medication Instructions Recorded Confirmed Last Taken Type Ferrous Sulfate [Feosol 325 MG tab] 325 mg PO BID #60 tablet 08/01/14 Unknown Rx HYDROcodone/APAP 5-325 [Donald 1 each PO Q6H PRN #30 tablet 08/01/14 Unknown Rx 5-325 mg TAB] Ibuprofen [Motrin 600 MG tab] 600 mg PO Q6HR PRN #30 tablet 08/01/14 Unknown Rx Vit-Fe Fumar-FA [ 1 each PO QDAY #30 tablet 08/01/14 Unknown Rx Vitamin] Acetaminophen [Tylenol] 650 mg PO Q8HR PRN #20 capsule 09/10/20 Unknown Rx Albuterol Sulfate [Proventil Hfa] 1 - 2 inhalation IH Q4HR PRN #1 09/10/20 Unknown Rx hfa.aer.ad Azithromycin [Zithromax TAB] 250 mg PO QDAY 5 Days #6 tablet 09/10/20 Unknown Rx Prednisone [predniSONE 10 mg 10 mg PO .TAPER #1 tab.ds.pk 09/10/20 Unknown Rx (6-Day Pack, 21 Tabs)] guaiFENesin ER [Mucinex ER] 600 mg PO Q12H #14 tablet.er 09/10/20 Unknown Rx Active Meds: Active Medications Acetaminophen (Acetaminophen 325 Mg Tab) 650 mg PO Q4H PRN PRN Reason: Pain MILD(1-3)/Fever >100.5/MONTIEL Docusate Sodium (Docusate Sodium 100 Mg Cap) 100 mg PO BID JOSE Enoxaparin Sodium (Enoxaparin 40 Mg/0.4 Ml Inj) 40 mg SUB-Q QDAY@2200 JOSE; Protocol Famotidine (Famotidine 10 Mg Tab) 10 mg PO BID JOSE Hydralazine HCl (Hydralazine 20 Mg/1 Ml Inj) 5 mg IV Q30MIN PRN PRN Reason: Hypertension Dextrose/Sodium Chloride (D5ns) 1,000 mls @ 75 mls/hr IV DIRECT JOSE Lorazepam (Lorazepam 2 Mg/Ml Vial) 2 mg IV Q4H PRN PRN Reason: Agitation Oxycodone/Acetaminophen (Oxycodone /Acetaminophen 5-325mg Tab) 1 tab PO Q6H PRN PRN Reason: Pain, Moderate (4-6) Physical Examination - Vital Signs Vital Signs: Vital Signs Pulse Resp Pulse Ox 105 H 15 100 03/09/21 08:51 03/09/21 08:51 03/09/21 08:51 - Physical Exam Narrative exam: The patient is alert , moves all 4 extremities, Gait is not tested . Results - Laboratory Findings CBC and BMP: 03/09/21 08:42 03/09/21 08:42 Abnormal Lab Findings: Abnormal Labs 03/09/21 03/09/21 03/09/21 08:42 08:42 08:42 RDW 12.6 L Lymph % (Auto) 43.7 H Sodium 136 L Potassium 3.4 L BUN 6 L Glucose 116 H Ammonia 20.0 L Total Protein 8.5 H Salicylates Acetaminophen 03/09/21 03/09/21 08:42 08:42 RDW Lymph % (Auto) Sodium Potassium BUN Glucose Ammonia Total Protein Salicylates < 0.3 L Acetaminophen 5.0 L Assessment and Plan 1. Seizure ( new onset - needs further evaluation ). 2. Driving issues discussed - no driving for 6 months . 3. Consider AEDs as out patient . 4. MRI Brain 5. EEG in Hospital 6. Patient needs a Out Patient Neurology Follow up . 7. Reviewed Neuroimaging Test done. Dr. Whitfield
[2021-03-09] MEDS ORDERED: ENOXAPARIN 40 MG/0.4 ML INJ SUB-Q SCH (22:00)
[2021-03-10] MEDS: FAMOTIDINE 10 MG TAB PO SCH ×3 (00:43→10:46)
[2021-03-10] MEDS: DOCUSATE SODIUM 100 MG CAP PO SCH ×2 (00:44→10:50)
[2021-03-10 03:16] LABS: Bilirubin,Urine NEG (Negative); Blood,Urine LG (Negative); Color,Urine Amber (Yellow); Mucus,Urine 3+ /HPF
[2021-03-10 03:32] LABS: Amphetamine Screen,Urine Negative; Benzodiazepines Screen,Urine Negative; Cocaine Screen,Urine Negative; Methadone Screen,Urine Negative; Opiate Screen,Urine Negative
[2021-03-10 04:02] LABS: Cannabinoid Screen,Urine Positive
--- NOTE | 2021-03-10 11:11 | Electrocardiograph Report ---
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
--- NOTE | 2021-03-10 13:33 | Discharge Summary ---
Providers - Providers Date of Admission: 03/09/21 10:04 Date of discharge: 03/10/21 Attending physician: WILLIE ARMENDARIZ 03/09/21 13:05 Consult to Physician [CONS] Routine Comment: Consulting Provider: JER COLON Physician Instructions: Reason For Exam: seizure Primary care physician: PHP MYSQL DEVELOPER Hospitalization Condition: Good Disposition: 01 HOME / SELF CARE / HOMELESS Final Discharge Diagnosis (Prints w/discharge instructions): --Acute encephalopathy, toxic versus metabolic. --Acute seizure, could be provoked, AED as outpatient. --Hypokalemia with hyponatremia. --Sinus tachycardia Time spent for discharge: [facility] Core Measure Documentation - Palliative Care Palliative Care/ Comfort Measures: Not Applicable - Core Measures Any of the following diagnoses?: none Exam - Constitutional Vitals: Temp Pulse Resp BP Pulse Ox 98.4 F 75 18 113/67 95 03/10/21 12:32 03/10/21 12:32 03/10/21 12:32 03/10/21 12:32 03/10/21 12:32 Plan Activity: advance as tolerated Weight Bearing Status: Weight Bear as Tolerated Diet: low fat, low salt Additional Instructions: Follow-up with neurology in 1 week for possible initiation of AEDs Follow up with: PRIMARY CARE, [Primary Care Provider] - 3-5 Days
[2021-03-10 17:44] VITALS: BP 107/84
== END 2021-03-10 19:47 | disposition home or self-care (01) ==
LOC: ED 08:24 → 4A 10:04
PROVIDERS: ADMIT Internal Medicine; ATTEND Internal Medicine
DX: G93.40 Encephalopathy, unspecified (principal); E87.6 Hypokalemia; R56.9 Unspecified convulsions; E87.1 Hypo-osmolality and hyponatremia; R00.0 Tachycardia, unspecified; R25.2 Cramp and spasm; R29.704 NIHSS score 4; F12.90 Cannabis use, unspecified, uncomplicated; Z79.899 Other long term (current) drug therapy
CPT/HCPCS: 36415; 70450; 70496; 70498; 71045; 80053; 80307; 81001; 82140; 82962; 84443; 84484; 84702; 85025; 85610; 87086; 93005; 95819; 96361; 96372; 96374; 99285; G0378; J1650; J2250; J2405; J7042; Q9967; 80320; G0480